=== PATIENT | female | born 2000 | race Caucasian/White ===

== ENCOUNTER 2021-11-13 10:30 | Outpatient (CLI) | payer OTHER, SELFPAY ==
[~2021-11-13] VITALS: Ht 149.9 cm; Wt 78.5 kg
[~2021-11-13 10:30] MED LIST: ONDA4TAB6 PO
[2021-11-13 10:52] VITALS: BP 136/104
[2021-11-13] MEDS ORDERED: ACET325C5 PO (10:59)
[2021-11-13] MEDS ORDERED: PRENTAB9 PO (10:59)
[2021-11-13 11:10] VITALS: BP 144/102
[2021-11-13 11:27] VITALS: BP 117/89
[2021-11-13 11:42] VITALS: BP 113/75
[2021-11-13 12:21] VITALS: BP 115/71
[2021-11-13 12:39] LABS: HEMOGLOBIN 12.2 g/dl (12.0-15.5); MEAN CORPUSCULAR HEMOGLOBIN 28.6 pg (27.0-33.0); MEAN CORPUSCULAR VOLUME 86.7 fl (80.0-96.0); PLATELET COUNT, AUTOMATED 340 10^3/uL (150-450); RED BLOOD COUNT 4.27 10^6/uL (4.00-5.40); WHITE BLOOD COUNT 14.2 10^3/uL (4.0-10.0)
[2021-11-13 12:56] LABS: INR 0.96; PROTHROMBIN TIME 13.2 SECONDS (12.7-14.5)
[2021-11-13 12:57] LABS: PARTIAL THROMBOPLASTIN TIME 34.2 SECONDS (25.9-37.0)
[2021-11-13] MEDS ORDERED: HOME MED LIST COMPLETE! XX SCH (13:45)
[2021-11-13 14:18] VITALS: BP 121/79
== END 2021-11-13 15:00 | disposition home or self-care (01) ==
LOC: M LDO 10:30
PROVIDERS: ATTEND Obstetrics & Gynecology
DX: O9A.213 Injury, poisoning and certain other consequences of external causes complicating pregnancy, third trimester (principal); S20.229A Contusion of unspecified back wall of thorax, initial encounter; W01.0XXA Fall on same level from slipping, tripping and stumbling without subsequent striking against object, initial encounter; Y92.9 Unspecified place or not applicable; Z3A.28 28 weeks gestation of pregnancy; O32.1XX0 Maternal care for breech presentation, not applicable or unspecified; Z88.0 Allergy status to penicillin
CPT/HCPCS: 36415; 59025; 76815; 85027; 85384; 85610; 85730; G0378; G0463

== ENCOUNTER 2022-01-07 00:35 | Outpatient (CLI) | payer OTHER, SELFPAY ==
[~2022-01-07] VITALS: Ht 149.9 cm; Wt 82.9 kg
[~2022-01-07 00:35] MED LIST changes: +ACET325C5 PO; +PRENTAB9 PO
[2022-01-07 01:05] VITALS: BP 134/97
[2022-01-07 01:17] VITALS: BP 122/92
[2022-01-07 01:56] VITALS: BP 142/99
[2022-01-07 02:08] VITALS: BP 120/97
== END 2022-01-07 02:40 | disposition home or self-care (01) ==
LOC: M LDO 00:35
PROVIDERS: ATTEND Obstetrics & Gynecology
DX: O26.893 Other specified pregnancy related conditions, third trimester (principal); M25.511 Pain in right shoulder; R10.10 Upper abdominal pain, unspecified; Z3A.36 36 weeks gestation of pregnancy; O99.343 Other mental disorders complicating pregnancy, third trimester; F31.9 Bipolar disorder, unspecified; Z79.899 Other long term (current) drug therapy; Z88.0 Allergy status to penicillin
CPT/HCPCS: 59025; G0463